=== PATIENT | female | born 1990 | race Caucasian/White ===

== ENCOUNTER 2019-11-11 08:39 | Emergency (ER) | payer OTHER | END 2019-11-11 08:46 | disposition other institution (70) | LOC: ED 08:39 | DX: Z02.89 Encounter for other administrative examinations (principal) ==

== ENCOUNTER 2019-11-11 08:39 | Emergency (ER) | payer OTHER ==
[~2019-11-11] VITALS: Ht 165.1 cm; Wt 53.5 kg
[2019-11-11 08:46] VITALS: BP 138/89; Ht 165.1 cm; Wt 53.5 kg
== END 2019-11-11 09:26 | disposition other institution (70) ==
LOC: ED 08:39
DX: S91.312A Laceration without foreign body, left foot, initial encounter (principal); W45.8XXA Other foreign body or object entering through skin, initial encounter; Y93.89 Activity, other specified; Y92.89 Other specified places as the place of occurrence of the external cause; Y99.8 Other external cause status
CPT/HCPCS: 99406